=== PATIENT | male | born 1945 | race Caucasian/White ===

== ENCOUNTER 2016-05-17 16:58 | Observation (INO) | payer MEDICARE, OTHER ==
[~2016-05-17] VITALS: Ht 185.4 cm; Wt 148.7 kg
[~2016-05-17 16:58] MED LIST: ARIC5TAB PO; ASPI81 PO; ATOR10 PO; CLON.5 PO; COMMODE 3:1; COZA100T PO; DULO60 PO; GABA300 PO; IPRA0.02 NEB; LAMI25TA3 PO; LANTUS2P SC; NOVOLOGP2 SQ; OXYC1SOL5 PO; PERI8.6T PO; RANI150T PO; SPIRCAP INH; TAB-TAB PO; TUB TRANSFER BENCH; Z.0.OXYGEN INH; Z.0.WALKERBAR; Z.0.WHEELBAR
[2016-05-17 17:03] VITALS: BP 113/77; PULSE 82; TEMP 97.9
[2016-05-17 17:10] VITALS: BP 113/77; PULSE 79; O2SAT 95
[2016-05-17] MEDS ORDERED: SODIUM CHLORIDE 0.9% FLUSH 5 ML FLUSH IVF PRN (17:15)
[2016-05-17] MEDS ORDERED: SODIUM CHLOR 0.9% 1000 ML INJ 1,000 ML IV ONE ×2 (17:15→18:45)
[2016-05-17 17:18] VITALS: O2SAT 96
--- NOTE | 2016-05-17 17:45 | RADRPT ---
EXAM DATE/TIME: 05/17/2016 17:28 [facility] COMPARISON: CHEST SINGLE AP, December 29, 2015, 20:05. INDICATIONS : Chest pain and shortness of breath post fall. MEDICAL HISTORY : Chronic obstructive pulmonary disease. SURGICAL HISTORY : None. ENCOUNTER: Initial ACUITY: 1 day PAIN SCORE: 3/10 LOCATION: Bilateral chest FINDINGS: A single view of the chest demonstrates the lungs to be symmetrically aerated without evidence of mas s, infiltrate or effusion. The cardiomediastinal contours are stable. Osseous structures are intact and stable. CONCLUSION: No acute disease. No significant change has occurred. Rosendo Beckett MD on May 17, 2016 at 17:42 Board Certified Radiologist. This report was verified electronically.
[2016-05-17 17:57] LABS: AUTOMATED NEUTROPHIL # 11.6 TH/MM3 (1.8-7.7); BASOPHIL # 0.1 TH/MM3 (0-0.2); BASOPHIL % 0.6 % (0.0-2.0); EOSINOPHIL # 0.2 TH/MM3 (0-0.4); EOSINOPHIL % 1.5 % (0.0-4.0); HEMATOCRIT 39.1 % (39.0-51.0); HEMO FLAGS DIFF FINAL; LYMPH % 14.3 % (9.0-44.0); LYMPHOCYTE # 2.2 TH/MM3 (1.0-4.8); MEAN CORPUSCULAR HEMOGLOBIN 27.7 PG (27.0-34.0); MEAN CORPUSCULAR HGB CONC 31.5 % (32.0-36.0); MONO % 7.1 % (0.0-8.0); NEUT % 76.5 % (16.0-70.0); PLATELET COUNT 247 TH/MM3 (150-450); RED BLOOD COUNT 4.44 MIL/MM3 (4.50-5.90); RED CELL DISTRIBUTION WIDTH 16.5 % (11.6-17.2); WHITE BLOOD COUNT 15.2 TH/MM3 (4.0-11.0)
--- NOTE | 2016-05-17 18:09 | PD ---
HPI Chief Complaint: Fall Time Seen by Provider: 17:11 Travel History International Travel<30 days: No Contact w/Intl Traveler<30days: No Traveled to known affect area: No History of Present Illness HPI 70-year-old male senior living patient with multiple medical issues, nursing notes reviewed, recent admission for syncope with full workup, presents to the ER today because he states that he was trying to get out of the wheelchair because he had been sitting there for a while and did not have help from the staff, and felt weak, went down between the wheelchair in the bed, and is now having abdominal pain, back pain. He denies hitting his head or loss of consciousness. He denies any fevers, vomiting, or any other symptoms. Pain is currently a 6 out of 10 in the abdomen. He denies having had the pain before his fall. On initial evaluation by EMS, his blood pressure was 60 systolic. They gave him a bolus of fluids and is now 110 systolic. Modifying Factors: None Associated Signs & Symptoms: Fall from wheelchair, abdominal pain, back pain Risk Factors: Recent syncope PFSH Past Medical History Arthritis: Yes (severe arthritis) Asthma: No Autoimmune Disease: No Blood Disorders: No Bipolar Disorder: Yes Anxiety: Yes Depression: Yes Heart Rhythm Problems: No Cancer: No Cardiovascular Problems: Yes High Cholesterol: Yes Chemotherapy: No Chest Pain: No Congestive Heart Failure: Yes COPD: Yes Cerebrovascular Accident: Yes Dementia: Yes Diabetes: Yes Patient Takes Glucophage: Yes Diminished Hearing: No Endocrine: Yes Gastrointestinal Disorders: Yes (GERD) GERD: Yes Glaucoma: No Genitourinary: Yes Headaches: No Hiatal Hernia: No Heparin Induced Thrombocytopen: No Herniated Disk: Yes (SURGICAL REPAIR) Hypertension: Yes Immune Disorder: No Implanted Vascular Access Dvce: Yes Kidney Stones: No Musculoskeletal: Yes Neurologic: Yes (SPINAL CORD COMPRESSIONS, CARPAL TUNNEL SYNDROME; NEUROPATHY BLE & UE) Psychiatric: Yes Reproductive: No Respiratory: Yes Immunizations Current: Yes Migraines: No Myocardial Infarction: No Radiation Therapy: No Renal Failure: No Seizures: No Sickle Cell Disease: No Sleep Apnea: Yes (CPAP) Thyroid Disease: No Ulcer: No Tetanus Vaccination: < 5 Years Influenza Vaccination: Yes Past Surgical History Abdominal Surgery: No AICD: No Arteriovenous Shunt: No Body Medical Devices: METAL PLATE C4, TONY KNEE Cardiac Surgery: No Ear Surgery: No Endocrine Surgery: No Eye Surgery: Yes (BILATERAL CATARACT) Genitourinary Surgery: Yes (PROSTATE/TURP X2) Gynecologic Surgery: No Insulin Pump: No Joint Replacement: Yes (TONY KNEE) Neurologic Surgery: Yes (DISC, has a plate in his neck; Bilateral carpal tunnel release) Oral Surgery: Yes ( top teeth removed) Pacemaker: No Thoracic Surgery: No Tonsillectomy: Yes Other Surgery: Yes Social History Alcohol Use: No Tobacco Use: No Substance Use: No Allergies-Medications (Allergen,Severity, Reaction): Coded Allergies: Morphine (Verified Allergy, Severe, 05/17/16) Reported Meds & Prescriptions Reported Meds & Active Scripts Active Reported Melatonin (Melatonin (Bulk)) 1 Pow Pow 3 Mg PO HS Novolog Inj (Insulin Aspart) 1,000 Unit/10 Ml Vial 0 SQ DIRECTED Sliding Scale as directed. Novolog Inj (Insulin Aspart) 100 Unit/Ml Inj 5 SQ DAILY Lantus Inj (Insulin Glargine) 100 Unit/Ml Inj 45 SQ BID Percocet (Oxycodone-Acetaminophen) 5-325 mg Tab 1 Tab PO Q4H PRN Aricept (Donepezil) 10 Mg Tab 10 Mg PO HS Atorvastatin (Atorvastatin Calcium) 10 Mg Tab 10 Mg PO HS Naprosyn (Naproxen) 250 Mg Tab 250 Mg PO TID Gabapentin 600 Mg Tab 600 Mg PO TID Symbicort Inh (Budesonide/Formoterol Fumarate) 160-4.5 Mcg/Act Aero 2 Puff INH Q12HR Senexon (Sennosides) 8.6 Mg Tab 17 Mg PO BID Metformin (Metformin HCl) 500 Mg Tab 500 Mg PO BIDPC With meals Effexor (Venlafaxine HCl) 75 Mg Tab 225 Mg PO DAILY Spiriva Handihaler (Tiotropium Inh) 18 Mcg Cap 18 Mcg INH DAILY 1 capsule = 18 mcg Klonopin (Clonazepam) 1 Mg Tab 1 Mg PO BID Ranitidine (Ranitidine HCl) 150 Mg Tab 150 Mg PO DAILY Propranolol (Propranolol HCl) 10 Mg Tab 10 Mg PO DAILY Potassium Chloride ER (Potassium Chloride) 10 Meq Tab 10 Meq PO QOD Multivitamin Adults (Multiple Vitamins W/ Minerals) 1 Tab 1 Tab PO DAILY Losartan (Losartan Potassium) 100 Mg Tab 100 Mg PO DAILY Lasix (Furosemide) 20 Mg Tab 20 Mg PO DAILY Aspirin 81 Mg Tabdr 81 Mg PO DAILY Review of Systems Except as stated in HPI: all other systems reviewed are Neg Physical Exam Narrative GENERAL: Well-nourished, well-developed elderly white male patient in no acute distress. Awake and oriented 3. SKIN: Warm and dry. HEAD: Normocephalic. EYES: No scleral icterus. No injection or drainage. NECK: Supple, trachea midline. CARDIOVASCULAR: Regular rate and rhythm without murmurs, gallops, or rubs. RESPIRATORY: Breath sounds equal bilaterally. No accessory muscle use. GASTROINTESTINAL: Abdomen soft, periumbilical tenderness without guarding or rebound, nondistended. MUSCULOSKELETAL: No cyanosis, or edema. BACK: Nontender without obvious deformity. No CVA tenderness. Data Data Last Documented VS Vital Signs Date Time Temp Pulse Resp B/P Pulse Ox O2 Delivery O2 Flow Rate FiO2 05/17/16 17:18 96 4 05/17/16 17:10 79 113/77 Nasal Cannula 05/17/16 17:03 97.9 Orders Electrocardiogram (05/17/16 17:11) Complete Blood Count With Diff (05/17/16 17:11) Comprehensive Metabolic Panel (05/17/16 17:11) Magnesium (Mg) (05/17/16 17:11) Ckmb (Isoenzyme) Profile (05/17/16 17:11) Troponin I (05/17/16 17:11) Act Partial Throm Time (Ptt) (05/17/16 17:11) Prothrombin Time / Inr (Pt) (05/17/16 17:11) Urinalysis - C+S If Indicated (05/17/16 17:11) Chest, Single Ap (05/17/16 17:11) Ecg Monitoring (05/17/16 17:11) Iv Access Insert/Monitor (05/17/16 17:11) Oximetry (05/17/16 17:11) Sodium Chloride 0.9% Flush (Ns Flush) (05/17/16 17:15) Sodium Chlor 0.9% 1000 Ml Inj (Ns 1000 M (05/17/16 17:15) Lactic Acid Sepsis Protocol (05/17/16 18:09) Blood Culture (05/17/16 18:09) Piperacil-Tazo 4.5 Gm Premix (Zosyn 4.5 (05/17/16 18:22) Sodium Chlor 0.9% 1000 Ml Inj (Ns 1000 M (05/17/16 18:45) Ct Abd/Pel W/O Iv Contrast (05/17/16 17:11) Urine Culture (05/17/16 18:45) Admit Order (Ed Use Only) (05/17/16 19:23) Labs Laboratory Tests Test 05/17/16 05/17/16 05/17/16 17:42 18:35 18:45 White Blood Count 15.2 TH/MM3 Red Blood Count 4.44 MIL/MM3 Hemoglobin 12.3 GM/DL Hematocrit 39.1 % Mean Corpuscular Volume 88.0 FL Mean Corpuscular Hemoglobin 27.7 PG Mean Corpuscular Hemoglobin 31.5 % Concent Red Cell Distribution Width 16.5 % Platelet Count 247 TH/MM3 Mean Platelet Volume 8.5 FL Neutrophils (%) (Auto) 76.5 % Lymphocytes (%) (Auto) 14.3 % Monocytes (%) (Auto) 7.1 % Eosinophils (%) (Auto) 1.5 % Basophils (%) (Auto) 0.6 % Neutrophils # (Auto) 11.6 TH/MM3 Lymphocytes # (Auto) 2.2 TH/MM3 Monocytes # (Auto) 1.1 TH/MM3 Eosinophils # (Auto) 0.2 TH/MM3 Basophils # (Auto) 0.1 TH/MM3 CBC Comment DIFF FINAL Differential Comment Prothrombin Time 13.9 SEC Prothromb Time International 1.2 RATIO Ratio Activated Partial 26.6 SEC Thromboplast Time Sodium Level 139 MEQ/L Potassium Level 4.9 MEQ/L Chloride Level 101 MEQ/L Carbon Dioxide Level 26.8 MEQ/L Anion Gap 11 MEQ/L Blood Urea Nitrogen 28 MG/DL Creatinine 2.03 MG/DL Estimat Glomerular Filtration 33 ML/MIN Rate Random Glucose 173 MG/DL Calcium Level 8.8 MG/DL Magnesium Level 2.1 MG/DL Total Bilirubin 0.7 MG/DL Aspartate Amino Transf 25 U/L (AST/SGOT) Alanine Aminotransferase 35 U/L (ALT/SGPT) Alkaline Phosphatase 102 U/L Total Creatine Kinase 67 U/L Troponin I LESS THAN 0.02 NG/ML Total Protein 6.8 GM/DL Albumin 3.2 GM/DL Lactic Acid Level 2.4 mmol/L Urine Color YELLOW Urine Turbidity CLOUDY Urine pH 7.5 Urine Specific [place] 1.021 Urine Protein 100 mg/dL Urine Glucose (UA) NEG mg/dL Urine Ketones NEG mg/dL Urine Occult Blood MOD Urine Nitrite NEG Urine Bilirubin NEG Urine Urobilinogen LESS THAN 2.0 MG/DL Urine Leukocyte Esterase LARGE Urine RBC 96 /hpf Urine WBC /hpf Urine WBC Clumps MANY Urine Squamous Epithelial 1 /hpf Cells Urine Bacteria MOD /hpf Microscopic Urinalysis Comment CULTURE INDICATED MDM Medical Decision Making Medical Screen Exam Complete: Yes Emergency Medical Condition: Yes Medical Record Reviewed: Yes Interpretation(s) Laboratory Tests Test 05/17/16 05/17/16 05/17/16 17:42 18:35 18:45 White Blood Count 15.2 TH/MM3 (4.0-11.0) Red Blood Count 4.44 MIL/MM3 (4.50-5.90) Hemoglobin 12.3 GM/DL (13.0-17.0) Mean Corpuscular Hemoglobin 31.5 % Concent (32.0-36.0) Neutrophils (%) (Auto) 76.5 % (16.0-70.0) Neutrophils # (Auto) 11.6 TH/MM3 (1.8-7.7) Monocytes # (Auto) 1.1 TH/MM3 (0-0.9) Prothrombin Time 13.9 SEC (9.8-11.6) Blood Urea Nitrogen 28 MG/DL (7-18) Creatinine 2.03 MG/DL (0.60-1.30) Estimat Glomerular Filtration 33 ML/MIN (>89) Rate Random Glucose 173 MG/DL (74-106) Troponin I LESS THAN 0.02 NG/ML (0.02-0.05) Albumin 3.2 GM/DL (3.4-5.0) Lactic Acid Level 2.4 mmol/L (0.4-2.0) Urine Turbidity CLOUDY (CLEAR) Urine Protein 100 mg/dL (NEG-TRACE) Urine Occult Blood MOD (NEG) Urine Leukocyte Esterase LARGE (NEG) Urine RBC 96 /hpf (0-3) Urine WBC Clumps MANY (NONE) Urine Bacteria MOD /hpf (NONE) Last 24 hours Impressions Chest X-Ray 05/17/16 [id number] Signed Impressions: Service Date/Time: Tuesday, May 17, 2016 17:28 - CONCLUSION: No acute disease. No significant change has occurred. Rosendo Beckett MD Differential Diagnosis Fall from wheelchair, abdominal pain, hypotensionacute intra-abdominal injuries versus dehydration versus metabolic issues versus dysrhythmias versus sepsis Narrative Course Patient is fairly hypotensive initially and IV fluids were given in the ER. Lab work shows significant UTI with suspicion of sepsis and IV antibiotic's were initiated after cultures are drawn. Case is discussed with Dr. Trujillo for admission. Sepsis Criteria SIRS Criteria (2 or more): WBC > 68965, < 4000 or > 10% bands Sepsis Criteria (SIRS+source): Infect source susp/known Severe Sepsis (+one): Hypotension Septic Shock Criteria: Lactic acid >=4 Diagnosis Primary Impression: SEVERE SEPSIS WITHOUT SEPTIC SHOCK Additional Impression: UTI (urinary tract infection) Admitting Information Admitting Physician Requests: Admit Caren Villa MD May 17, 2016 18:09
[2016-05-17 18:18] LABS: APTT (PATIENT) 26.6 SEC (24.3-30.1); INTERNATIONAL NORMALIZED RATIO 1.2 RATIO; PROTHROMBIN TIME - PATIENT 13.9 SEC (9.8-11.6)
[2016-05-17] MEDS ORDERED: PIPERACIL-TAZO 4.5 GM PREMIX 100 ML IV STA (18:22)
[2016-05-17] MEDS ORDERED: PERC5TAB12 PO (18:27)
[2016-05-17] MEDS ORDERED: POTA10TA2 PO (18:27)
[2016-05-17] MEDS ORDERED: ASPI1TAB69 PO (18:27)
[2016-05-17] MEDS ORDERED: NOVOLOGSS SQ (18:27)
[2016-05-17] MEDS ORDERED: RANI150T PO (18:27)
[2016-05-17] MEDS ORDERED: PROP10TA6 PO (18:27)
[2016-05-17] MEDS ORDERED: GABA600T PO (18:27)
[2016-05-17] MEDS ORDERED: FURO1TAB62 PO (18:27)
[2016-05-17] MEDS ORDERED: SENE8.6T3 PO (18:27)
[2016-05-17] MEDS ORDERED: SPIRCAP INH (18:27)
[2016-05-17] MEDS ORDERED: ARIC10TA PO (18:27)
[2016-05-17] MEDS ORDERED: MULT1TAB84 PO (18:27)
[2016-05-17] MEDS ORDERED: VENL75TA PO (18:27)
[2016-05-17] MEDS ORDERED: NOVOLOGP2 SQ (18:27)
[2016-05-17] MEDS ORDERED: NAPR250T57 PO (18:27)
[2016-05-17] MEDS ORDERED: METF500T PO (18:27)
[2016-05-17] MEDS ORDERED: LANTUS2P SQ (18:27)
[2016-05-17] MEDS ORDERED: MELAPOW2 PO (18:27)
[2016-05-17] MEDS ORDERED: CLON1 PO (18:27)
[2016-05-17] MEDS ORDERED: SYMB160A INH (18:27)
[2016-05-17] MEDS ORDERED: LOSA100T PO (18:27)
[2016-05-17] MEDS ORDERED: ATOR10TA15 PO (18:27)
[2016-05-17 18:34] LABS: ALKALINE PHOSPHATASE 102 U/L (45-117); ALT (GPT) 35 U/L (12-78); ANION GAP 11 MEQ/L (5-15); AST (GOT) 25 U/L (15-37); BICARBONATE 26.8 MEQ/L (21.0-32.0); BLOOD UREA NITROGEN 28 MG/DL (7-18); CHLORIDE 101 MEQ/L (98-107); CREATINE KINASE 67 U/L (39-308); GLOMERULAR FILTRATION RATE 33 ML/MIN (>89); MAGNESIUM 2.1 MG/DL (1.5-2.5); POTASSIUM 4.9 MEQ/L (3.5-5.1); SODIUM (NA) 139 MEQ/L (136-145); TOTAL BILIRUBIN ADULT 0.7 MG/DL (0.2-1.0)
[2016-05-17 19:03] LABS: BACTERIA, URINE MOD /hpf; BLOOD, URINE MOD (NEG); COMMENT (UR) CULTURE INDICATED; CULTURE IF INDICATED CULTURE INDICATED; GLUCOSE,URINE NEG (NEG); KETONE, URINE NEG (NEG); NITRITE,URINE NEG (NEG); PH, URINE 7.5 (5.0-8.5); SQUAMOUS EPITHELIAL CELL URINE 1 /hpf (0-5); URINE COLOR YELLOW (YELLW/STRAW)
--- NOTE | 2016-05-17 19:36 | RADRPT ---
EXAM DATE/TIME: 05/17/2016 19:08 [facility] COMPARISON: CT ABDOMEN & PELVIS W/O CONTRAST, March 22, 2014, 21:53. INDICATIONS : Abdomen and back pain. ORAL CONTRAST: No oral contrast ingested. RADIATION DOSE: 29.75 CTDIvol (mGy) MEDICAL HISTORY : Cardiovascular disease. Hypertension. Chronic obstructive pulmonary disease.GERD Dementia CVA SURGICAL HISTORY : Tonsillectomy. Fusion, cervical.TURP ENCOUNTER: Initial ACUITY: 1 day PAIN SCALE: 10/10 LOCATION: Bilateral abdomen TECHNIQUE: Volumetric scanning of the abdomen and pelvis was performed. Using automated exposure control and ad justment of the mA and/or kV according to patient size, radiation dose was kept as low as reasonably achievable to obtain optimal diagnostic quality images. FINDINGS: There are 5 mm right mid zone and lower pole and 3 mm right lower pole stones, but is nonobstructing. No ureteral calculus or hydronephrosis/hydroureter seen on either side. There are unchanged cysts of both kidneys measuring up to 2.5 cm on the right and up to 4.3 cm on the left. Noncontrast appearance of the liver, spleen, pancreas and retroperitoneum within normal limits. Mild, unchanged nodularity again noted of both adrenal glands. No obstruction or acute inflammatory changes are seen in the gastrointestinal tract. The appendix is well-visualized and normal. No free fluid or free air. No lymphadenopathy. Trace atelectasis seen in the bases. No acute bony abnormality demonstrated. CONCLUSION: 1. Nonobstructing stones of the right kidney. No evidence of obstructive uropathy or other acute abno rmality on either side. 2. Stable bilateral renal cysts. 3. Trace bibasilar atelectasis. Maxx Swain MD on May 17, 2016 at 19:30 Board Certified Radiologist. This report was verified electronically.
[2016-05-17 20:44] LABS: LACTIC ACID GHOST NOT REPORTABLE
[2016-05-17] MEDS ORDERED: ONDANSETRON HCL 4 MG/2 ML VIAL IVP PRN (20:45)
[2016-05-17] MEDS ORDERED: ACETAMINOPHEN 325 MG TAB PO PRN (20:45)
[2016-05-17] MEDS ORDERED: SODIUM CHLORIDE 0.9% FLUSH 5 ML FLUSH FLUSH PRN (20:45)
--- NOTE | 2016-05-17 20:47 | PD ---
Physical Exam Date Seen by Provider: May 17, 2016 Time Seen by Provider: 20:00 Narrative accepted in transfer of care from Dr Villa Data Data Last Documented VS Vital Signs Date Time Temp Pulse Resp B/P Pulse Ox O2 Delivery O2 Flow Rate FiO2 05/17/16 17:18 96 4 05/17/16 17:10 79 113/77 Nasal Cannula 05/17/16 17:03 97.9 Orders Electrocardiogram (05/17/16 17:11) Complete Blood Count With Diff (05/17/16 17:11) Comprehensive Metabolic Panel (05/17/16 17:11) Magnesium (Mg) (05/17/16 17:11) Ckmb (Isoenzyme) Profile (05/17/16 17:11) Troponin I (05/17/16 17:11) Act Partial Throm Time (Ptt) (05/17/16 17:11) Prothrombin Time / Inr (Pt) (05/17/16 17:11) Urinalysis - C+S If Indicated (05/17/16 17:11) Chest, Single Ap (05/17/16 17:11) Ecg Monitoring (05/17/16 17:11) Iv Access Insert/Monitor (05/17/16 17:11) Oximetry (05/17/16 17:11) Sodium Chloride 0.9% Flush (Ns Flush) (05/17/16 17:15) Sodium Chlor 0.9% 1000 Ml Inj (Ns 1000 M (05/17/16 17:15) Lactic Acid Sepsis Protocol (05/17/16 18:09) Blood Culture (05/17/16 18:09) Piperacil-Tazo 4.5 Gm Premix (Zosyn 4.5 (05/17/16 18:22) Sodium Chlor 0.9% 1000 Ml Inj (Ns 1000 M (05/17/16 18:45) Ct Abd/Pel W/O Iv Contrast (05/17/16 17:11) Urine Culture (05/17/16 18:45) Admit Order (Ed Use Only) (05/17/16 19:23) Labs Laboratory Tests Test 05/17/16 05/17/16 05/17/16 17:42 18:35 18:45 Prothrombin Time 13.9 SEC Prothromb Time International 1.2 RATIO Ratio Activated Partial 26.6 SEC Thromboplast Time Sodium Level 139 MEQ/L Potassium Level 4.9 MEQ/L Chloride Level 101 MEQ/L Carbon Dioxide Level 26.8 MEQ/L Anion Gap 11 MEQ/L Blood Urea Nitrogen 28 MG/DL Creatinine 2.03 MG/DL Estimat Glomerular Filtration 33 ML/MIN Rate Random Glucose 173 MG/DL Calcium Level 8.8 MG/DL Magnesium Level 2.1 MG/DL Total Bilirubin 0.7 MG/DL Aspartate Amino Transf 25 U/L (AST/SGOT) Alanine Aminotransferase 35 U/L (ALT/SGPT) Alkaline Phosphatase 102 U/L Total Creatine Kinase 67 U/L Troponin I LESS THAN 0.02 NG/ML Total Protein 6.8 GM/DL Albumin 3.2 GM/DL White Blood Count 15.2 TH/MM3 Red Blood Count 4.44 MIL/MM3 Hemoglobin 12.3 GM/DL Hematocrit 39.1 % Mean Corpuscular Volume 88.0 FL Mean Corpuscular Hemoglobin 27.7 PG Mean Corpuscular Hemoglobin 31.5 % Concent Red Cell Distribution Width 16.5 % Platelet Count 247 TH/MM3 Mean Platelet Volume 8.5 FL Neutrophils (%) (Auto) 76.5 % Lymphocytes (%) (Auto) 14.3 % Monocytes (%) (Auto) 7.1 % Eosinophils (%) (Auto) 1.5 % Basophils (%) (Auto) 0.6 % Neutrophils # (Auto) 11.6 TH/MM3 Lymphocytes # (Auto) 2.2 TH/MM3 Monocytes # (Auto) 1.1 TH/MM3 Eosinophils # (Auto) 0.2 TH/MM3 Basophils # (Auto) 0.1 TH/MM3 CBC Comment DIFF FINAL Differential Comment Lactic Acid Level 2.4 mmol/L Urine Color YELLOW Urine Turbidity CLOUDY Urine pH 7.5 Urine Specific [place] 1.021 Urine Protein 100 mg/dL Urine Glucose (UA) NEG mg/dL Urine Ketones NEG mg/dL Urine Occult Blood MOD Urine Nitrite NEG Urine Bilirubin NEG Urine Urobilinogen LESS THAN 2.0 MG/DL Urine Leukocyte Esterase LARGE Urine RBC 96 /hpf Urine WBC /hpf Urine WBC Clumps MANY Urine Squamous Epithelial 1 /hpf Cells Urine Bacteria MOD /hpf Microscopic Urinalysis Comment CULTURE INDICATED MDM Medical Record Reviewed: Yes Supervised Visit with ASHLYN: No Interpretation(s) Last Impressions Chest X-Ray 05/17/16 [id number] Signed Impressions: Service Date/Time: Tuesday, May 17, 2016 17:28 - CONCLUSION: No acute disease. No significant change has occurred. Rosendo Beckett MD Abdomen/Pelvis CT 05/17/16 1711 Signed Impressions: Service Date/Time: Tuesday, May 17, 2016 19:08 - CONCLUSION: 1. Nonobstructing stones of the right kidney. No evidence of obstructive uropathy or other acute abnormality on either side. 2. Stable bilateral renal cysts. 3. Trace bibasilar atelectasis. Maxx Swain MD Differential Diagnosis accepted in transfer of care from Dr Villa please refer to her dictation Narrative Course accepted in transfer of care from Dr Villa for follow-up of pending CT results and patient admission; per Dr. Hunter patient's case has been discussed in detail with admitting doctor Dr. Trujillo but he wanted to know the results of the CT before actually admitting the patient CT abdomen and pelvis identified patient to have right-sided kidney stones without evidence bilaterally of obstructive uropathy; stable renal cysts; and mild bibasilar atelectasis otherwise no acute process. Patient's case discussed in detail with Zhane health safety and environment manager for [facility] aware of white count of 15,000, renal insufficiency, normal range cardiac enzymes, markedly abnormal urinalysis with moderate bacteria many clumped white blood cells too numerous to count white blood cells positive leukocyte esterase and occult blood with 96 RBCs culture is indicated. Aware the patient is a 30 receive Zosyn. Patient has received IV fluid boluses in the emergency department. Patient's case will be accepted to the [facility] with patient to be admitted to Dr. Bill's service. Physician Communication Physician Communication discussed with Zhane --admit to Dr Bill'david service Diagnosis Primary Impression: SEVERE SEPSIS WITHOUT SEPTIC SHOCK Additional Impressions: UTI (urinary tract infection) History of COPD H/O CHF Admitting Information Admitting Physician Requests: Admit Elissa Minor MD May 17, 2016 20:47
--- NOTE | 2016-05-17 20:59 | EKG ---
Date Performed: 05/17/2016 Time Performed: 18:53:30 PTAGE: 70 years EKG: Sinus rhythm LOW QRS VOLTAGE IN PRECORDIAL LEADS INFERIOR ST ABNORMALITY, CONSIDER EARLY REPOLARIZATION BORDERLIN E ECG PREVIOUS TRACING : 12/29/2015 20.32 No significant change from previous tracing noted. DOCTOR: Wander Rodriguez Interpretating Date/Time 05/17/2016 20:58:40
[2016-05-17 21:00] VITALS: BP 102/43; PULSE 79; RESP 18; O2SAT 96
[2016-05-17] MEDS ORDERED: GLUCAGON 1 MG/ML VIAL OTHER PRN (21:00)
[2016-05-17] MEDS ORDERED: DEXTROSE 50% IN WATER 50 ML VIAL(D50) IV PUSH PRN (21:00)
[2016-05-17] MEDS: SODIUM CHLORIDE 0.9% FLUSH 5 ML FLUSH FLUSH SCH (21:00)
[2016-05-17] MEDS: INSULIN ASPART SUPPLEMENTAL SCALE SQ SCH (21:46)
[2016-05-17] MEDS: SODIUM CHLOR 0.9% 1000 ML INJ 1,000 ML IV SCH (22:49)
[2016-05-17 22:57] VITALS: BP 110/51; PULSE 77; RESP 18; O2SAT 96
[2016-05-18 04:00] VITALS: BP 156/75; PULSE 75; RESP 20; TEMP 97.7; O2SAT 96
[2016-05-18] MEDS: PIPERACIL-TAZO 2.25 GM PREMIX 50 ML IV SCH ×3 (05:28→21:04)
[2016-05-18] MEDS: SODIUM CHLOR 0.9% 1000 ML INJ 1,000 ML IV SCH ×2 (05:30→09:09)
[2016-05-18] MEDS: INSULIN ASPART SUPPLEMENTAL SCALE SQ SCH ×4 (06:09→20:55)
[2016-05-18] MEDS: SENNOSIDES 8.6 MG TAB PO SCH ×2 (08:44→21:03)
[2016-05-18] MEDS: FAMOTIDINE 20 MG TAB PO SCH ×2 (08:44→21:04)
[2016-05-18] MEDS: GABAPENTIN 300 MG CAP PO SCH ×2 (08:44→21:04)
[2016-05-18] MEDS: LOSARTAN 50 MG TAB PO SCH (08:44)
[2016-05-18] MEDS: metFORMIN HCL 500 MG TAB PO SCH (08:44)
[2016-05-18] MEDS: PROPRANOLOL HCL 10 MG TAB PO SCH (08:44)
[2016-05-18] MEDS: BUDESONIDE-FORMOTEROL 160/4.5 MCG INHALER INH SCH ×2 (09:00→21:00)
[2016-05-18] MEDS: SODIUM CHLORIDE 0.9% FLUSH 5 ML FLUSH FLUSH SCH ×2 (09:00→20:55)
--- NOTE | 2016-05-18 09:37 | MH ---
cc: LEXI FAUSTIN MD DATE OF ADMISSION: 05/17/2016 DATE OF : 1945 REASON FOR ADMISSION: Abdominal pain. TRAVEL: Any travel in the last 30 days, none. HISTORY OF PRESENT ILLNESS: This is a 70 year old white male who has multiple comorbidities and currently is in a long term setting according to the notes he was admitted recently with a syncopal episode and had a full work up, yesterday the patient was in a wheelchair and was needing assistance to go back to bed, he attempted to move on his own and slide down between the wheelchair and the bed. According to the records, he started complaining of some abdominal pain and back pain and was brought in for evaluation. Currently the patient states abdominal pain has subsided. He does have mild agitation and pleasant confusion but does respond to verbal stimuli. The patient does complain of shortness of breath at times but currently he is dyspneic at rest. In the emergency room and on initial evaluation, the patient received a fluid bolus, blood pressure initially was 102/43 but it is now at the last check is now 156/75. The patient is resting in the bed, no facial grimace but is unaware of where he is in his current situation. PAST MEDICAL HISTORY: 1. Includes; Severe arthritis. 2. Chronic obstructive pulmonary disease. 3. Congestive heart failure. 4. Anxiety disorder. 5. Bipolar disorder. 6. Cardiovascular disease. 7. Hyperlipidemia. 8. Stroke. 9. Dementia. 10. Diabetes mellitus type 2 on oral hypoglycemics and insulin. 11. Gastroesophageal reflux disease. 12. History of urinary problems. 13. Degenerative disc disease. 14. Hypertension. 15. Carpal tunnel syndrome. 16. Neuropathy. 17. Obstructive sleep apnea. Please note that the patient does use a CPAP as needed. 18. Prostate disease. PAST SURGICAL HISTORY: 1. Knee surgery, bilateral. 2. Metal plate C4 surgery. 3. Cataract surgery. 4. Transurethral resection of the prostate times two. 5. Bilateral carpal tunnel release. 6. Oral surgery with top teeth removed. 7. Tonsillectomy. 8. Please note most of this information is being gathered from the record, due to the patients altered mental status. ALLERGIES MORPHINE REPORTED MEDICATIONS: 1. Melatonin. 2. NovoLog for sliding scale. 3. 5 units subcutaneously daily. 4. Lantus insulin. 5. Aricept 6. Percocet 7. Atorvastatin 8. Naprosyn 9. Gabapentin 10. Symbicort 11. Senexon 12. Metformin 13. Effexor 14. Inhalers. 15. Klonopin 16. Zantac 17. Propranolol 18. Potassium 19. Vitamins 20. Losartan 21. Lasix 22. Aspirin. SOCIAL HISTORY: To my knowledge, no current alcohol, tobacco or illicit drug use. FAMILY HISTORY: Not applicable. REVIEW OF SYSTEMS: Currently denies any abdominal pain, does complain of some shortness of breath with exertion due to limited data from the patient. The complete review of systems is limited. PHYSICAL EXAMINATION: VITAL SIGNS: Temperature 97.7, pulse 75, respirations 20, blood pressure initially 102/43, now 156/75. O2 saturation 96, nasal cannula 3 liters of o2. IN GENERAL: Obese, white male, looks to be his stated age. Resting in the bed on his back. Well developed. He awakens to verbal stimuli with mild agitation. SKIN: The skin is pink, warm and dry. HEAD, EYES, EARS, NOSE, AND THROAT: Atraumatic, normocephalic, Pupils equal, round, reactive to light and accommodation three. No scleral icterus, no drainage. Oral cavity is pink and moist. NECK: The neck is thick, supple, trachea is midline. CARDIOVASCULAR SYSTEM: S1, S2. Regular rate and rhythm. Soft systolic murmur, grade 2/6 heard at the left sternal border, no gallops, no rubs. RESPIRATORY: Essentially clear and equal anteriorly and posteriorly, in the upper mid eid, decreased breath sounds bilateral in his lower lobes. ABDOMEN: The abdomen is obese, round, soft, nondistended, nontender to light palpitation. MUSCULOSKELETAL: He can move his extremities with purpose, minimal trace edema bilateral. NEUROLOGICALLY: He is alert, pleasant, confusion to place, situation and time. PSYCHIATRIC: Mood initially with slight agitation but after waking up began to respond more responsively. DIAGNOSTIC DATA: White blood cell count 15.2, Red blood cell 4.44, hemoglobin 12.3, hematocrit 39.1. Platelet count 247, neutrophil percentage 76.5. Coag; PT/INR 1.2. Chemistries; sodium 139, potassium 4.9, chloride 101, carbon dioxide 26.8, blood urea nitrogen 28, creatinine 2.03. Glomerular filtration rate 33, random glucose 173, lactic acid 2.4 initially in the emergency room and now 1.3 at 05/18/2016 at 12:30. Calcium 8.8. Magnesium 2.1, total bilirubin 0.7, Aspartate aminotransferase 25, alt 35, alkaline phosphatase 102. Troponins less than 0.02. Total protein 6.8, albumin 3.2. Urine is yellow, cloudy, pH 7.5, specific gravity 1.021, positive for protein, negative for glucose and ketones. Moderate amount of acute blood. Nitrates negative, bilirubin negative. Urine esterase large amount, red blood cells counts 96, many white blood count, moderate amount of bacteria. Culture is pending. ASSESSMENT AND PLAN: 1. Urinary tract infection with urosepsis, nonobstructing right kidney lithiasis. 2. Lactic acid urosepsis. 3. Hypertension without septic shock. 4. Acute kidney injury. 5. Hypertension. 6. Diabetes. 7. Morbid obesity. 8. Chronic obstructive pulmonary disease. 9. Congestive heart failure. PLAN: 1. Our plan was to admit initially for observation. The patients vital signs will be q four. He will receive cardiac monitoring, a 1800 calorie ada diet. Gentle hydration with IV fluids. Reconcile his medications. In the emergency room the patient received a CT of the abdomen and pelvis and a chest x-ray. The chest x-ray shows no acute disease. CT of the abdomen and pelvis showed nonobstructing stones of the right kidney, stable bilateral renal cyst, trace of bibasilar atelectasis. 2. IV Antibiotics include; Piperacillin/Tazobactam sodium q eight. 3. Sequential compression devices. 4. Pepcid for peptic ulcer disease prophylaxis. 5. Sequential compression devices for deep venous thrombosis prophylaxis. 6. Peptic ulcer disease prophylaxis with Pepcid. 7. Reconcile and monitor the patients medication, accuchecks with sliding scale insulin. We will reevaluate his need for his chcf insulin. 8. Patients code status to my knowledge is full code, full aggressive care. 9. We will monitor his vital signs which will include any fever, dysrhythmias, respirations and blood pressure. The patient will be monitored also with labs which will include his white blood counts and response to medications. I.e. leukocytosis. Dictated by GLADYS Rodriguez MD Gucci Cooper /7:49 AM /8:18 AM
[2016-05-18] MEDS: TIOTROPIUM BROMIDE 18 MCG INH INH SCH (10:59)
[2016-05-18] MEDS: VENLAFAXINE HCL XR 75 MG CAP PO SCH (10:59)
--- NOTE | 2016-05-18 11:07 | HHI.PR ---
Objective Objective Results - Vital Signs Date Time Temp Pulse Resp B/P Pulse Ox O2 Delivery O2 Flow Rate FiO2 05/18/16 04:00 97.7 75 20 156/75 96 05/18/16 01:18 18 05/17/16 22:57 77 18 110/51 96 Nasal Cannula 3 05/17/16 22:48 96 Room Air 05/17/16 21:00 79 18 102/43 96 Nasal Cannula 3 05/17/16 17:18 96 4 05/17/16 17:10 79 113/77 95 Nasal Cannula 4 05/17/16 17:03 97.9 82 113/77 I/O 05/17/16 05/17/16 05/17/16 05/18/16 05/18/16 05/18/16 07:00 15:00 23:00 07:00 15:00 23:00 Intake Total 500 ml Balance 500 ml IV Total 500 ml Result Diagram: 05/17/16 1742 05/17/16 174 Physical Exam Physical Exam PHYSICAL EXAMINATION GENERAL: This is a well-developed, well-nourished male who appears to be in no acute distress. He is alert and awake, []. HEAD: Normocephalic without any lesion or mass noted. Facial features appear symmetric. OROPHARYNGEAL: Oropharynx without erythema or edema. NECK: Supple. No nuchal rigidity or lymphadenopathy. Trachea midline without deviation. CARDIAC: Regular rhythm, regular rate, S1 and S2 are heard. Murmur []; no gallops or rubs. LUNGS: Clear to auscultation bilaterally. [] wheeze, [] rhonchi or [] rale. No use of accessory muscles on inspiration or expiration. ABDOMEN: Soft, nontender, no organomegaly or masses. Bowel sounds are heard in all four quadrants. No rebound. No guarding. EXTREMITIES: [] edema. Pulses equal bilateral. [] cyanosis. NEUROLOGICAL: Patient mood and affect appropriate. No focal deficit SKIN:Warm and moist A/P Assessment and Plan Patient followed per Dr. Bill, patient seen on her behalf. Case discussed for plan. Emilia Henley May 18, 2016 11:07
[2016-05-18 12:15] VITALS: BP 116/58; PULSE 65; RESP 20; TEMP 95.4; O2SAT 98
--- NOTE | 2016-05-18 15:00 | HHI.HP ---
[facility] Service [place] [facility] Primary Care Physician Unknown Admission Diagnosis fall/sepsis/UTI Diagnoses: Travel History International Travel<30 Days: No Contact w/Intl Traveler <30 Da: No Traveled to Known Affected Are: No Past Family Social History Allergies: Coded Allergies: Morphine (Verified Allergy, Severe, 05/17/16) Physical Exam Vital Signs Vital Signs Date Time Temp Pulse Resp B/P Pulse Ox O2 Delivery O2 Flow Rate FiO2 05/18/16 12:15 95.4 65 20 116/58 98 05/18/16 04:00 97.7 75 20 156/75 96 05/18/16 01:18 18 05/17/16 22:57 77 18 110/51 96 Nasal Cannula 3 05/17/16 22:48 96 Room Air 05/17/16 21:00 79 18 102/43 96 Nasal Cannula 3 05/17/16 17:18 96 4 05/17/16 17:10 79 113/77 95 Nasal Cannula 4 05/17/16 17:03 97.9 82 113/77 Physical Exam GENERAL: This is a well-nourished, well-developed patient, in no apparent distress. SKIN: No rashes, ecchymoses or lesions. Cool and dry. HEAD: Atraumatic. Normocephalic. No temporal or scalp tenderness. EYES: Pupils equal round and reactive. Extraocular motions intact. No scleral icterus. No injection or drainage. ENT: Nose without bleeding, purulent drainage or septal hematoma. Throat without erythema, tonsillar hypertrophy or exudate. Uvula midline. Airway patent. NECK: Trachea midline. No JVD or lymphadenopathy. Supple, nontender, no meningeal signs. CARDIOVASCULAR: Regular rate and rhythm without murmurs, gallops, or rubs. RESPIRATORY: Clear to auscultation. Breath sounds equal bilaterally. No wheezes , rales, or rhonchi. GASTROINTESTINAL: Abdomen soft, non-tender, nondistended. No hepato-splenomegaly , or palpable masses. No guarding. MUSCULOSKELETAL: Extremities without clubbing, cyanosis, or edema. No joint tenderness, effusion, or edema noted. No calf tenderness. Negative Homans sign bilaterally. NEUROLOGICAL: Awake and alert. Cranial nerves II through XII intact. Motor and sensory grossly within normal limits. Five out of 5 muscle strength in all muscle groups. Normal speech. Laboratory Laboratory Tests Test 05/17/16 05/17/16 05/17/16 05/18/16 17:42 18:35 18:45 00:30 Prothrombin Time 13.9 Prothromb Time International 1.2 Ratio Activated Partial 26.6 Thromboplast Time Sodium Level 139 Potassium Level 4.9 Chloride Level 101 Carbon Dioxide Level 26.8 Anion Gap 11 Blood Urea Nitrogen 28 Creatinine 2.03 Estimat Glomerular Filtration 33 Rate Random Glucose 173 Calcium Level 8.8 Magnesium Level 2.1 Total Bilirubin 0.7 Aspartate Amino Transf 25 (AST/SGOT) Alanine Aminotransferase 35 (ALT/SGPT) Alkaline Phosphatase 102 Total Creatine Kinase 67 Troponin I LESS THAN 0.02 Total Protein 6.8 Albumin 3.2 White Blood Count 15.2 Red Blood Count 4.44 Hemoglobin 12.3 Hematocrit 39.1 Mean Corpuscular Volume 88.0 Mean Corpuscular Hemoglobin 27.7 Mean Corpuscular Hemoglobin 31.5 Concent Red Cell Distribution Width 16.5 Platelet Count 247 Mean Platelet Volume 8.5 Neutrophils (%) (Auto) 76.5 Lymphocytes (%) (Auto) 14.3 Monocytes (%) (Auto) 7.1 Eosinophils (%) (Auto) 1.5 Basophils (%) (Auto) 0.6 Neutrophils # (Auto) 11.6 Lymphocytes # (Auto) 2.2 Monocytes # (Auto) 1.1 Eosinophils # (Auto) 0.2 Basophils # (Auto) 0.1 CBC Comment DIFF FINAL Differential Comment Lactic Acid Level 2.4 1.3 Urine Color YELLOW Urine Turbidity CLOUDY Urine pH 7.5 Urine Specific [place] 1.021 Urine Protein 100 Urine Glucose (UA) NEG Urine Ketones NEG Urine Occult Blood MOD Urine Nitrite NEG Urine Bilirubin NEG Urine Urobilinogen LESS THAN 2.0 Urine Leukocyte Esterase LARGE Urine RBC 96 Urine WBC Urine WBC Clumps MANY Urine Squamous Epithelial 1 Cells Urine Bacteria MOD Microscopic Urinalysis Comment CULTURE INDICATED Date/Time Procedure Status Source Growth 05/17/16 18:45 Urine Culture - Preliminary Resulted Urine Clean Catch Gram Negative Guillermo 05/17/16 18:35 Aerobic Blood Culture - Preliminary Resulted Blood Peripheral NO GROWTH IN 1 DAY 05/17/16 18:35 Anaerobic Blood Culture - Preliminary Resulted Blood Peripheral NO GROWTH IN 1 DAY Result Diagram: 05/17/16 1742 05/17/16 1742 Assessment and Plan Assessment and Plan Patient seen and examined Please refer to admission H & P for dEtails continue zosyn follow urine cultures: prelim GNR BP improved decrease i/v fluids to 50cc /hr if po intake good, will d/c i/v fluids. has h/o CHF complaining of severe pelvic and left leg pain will get Xrays PT eval pain control discussed with patient discussed with nursing staff discussed with Emilia GRAHAM Physician Certification 2 Midnight Certification Type: Admission for Inpatient Services Order for Inpatient Services The services are ordered in accordance with Medicare regulations or non- Medicare payer requirements, as applicable. In the case of services not specified as inpatient-only, they are appropriately provided as inpatient services in accordance with the 2-midnight benchmark. Estimated LOS (days): 3 days is the estimated time the patient will need to remain in the hospital, assuming treatment plan goals are met and no additional complications. Post-Hospital Plan: [facility] Stacy Bill MD May 18, 2016 15:00
[2016-05-18 16:00] VITALS: BP 103/54; PULSE 67; RESP 20; TEMP 95.4; O2SAT 99
[2016-05-18] MEDS: oxyCODONE/ACETAMINOPHEN 5 MG/325 MG TAB PO PRN ×2 (17:55→23:29)
--- NOTE | 2016-05-18 20:30 | RADRPT ---
EXAM DATE/TIME: 05/18/2016 20:13 [facility] COMPARISON: No previous studies available for comparison. INDICATIONS : Patient fell out of wheelchair 2 days ago. Complains of posterior pelvis pain. MEDICAL HISTORY : None. SURGICAL HISTORY : None. ENCOUNTER: Initial ACUITY: 1 day PAIN SCORE: 8/10 LOCATION: Pelvis FINDINGS: A single frontal view of the pelvis demonstrates no evidence of fracture. Degenerative changes of bot h hips. The bony pelvic ring is intact. Bony mineralization is normal. The soft tissues are intact . CONCLUSION: 1. No acute fracture. 2. Degenerative changes of both hips. Raffi Lebron MD on May 18, 2016 at 20:27 Board Certified Radiologist. This report was verified electronically.
--- NOTE | 2016-05-18 20:31 | RADRPT ---
EXAM DATE/TIME: 05/18/2016 20:17 [facility] COMPARISON: No previous studies available for comparison. INDICATIONS : Patient fell out of wheelchair 2 days ago. Complains of left foot pain. MEDICAL HISTORY : None. SURGICAL HISTORY : None. ENCOUNTER: Initial ACUITY: 2 days PAIN SCORE: 8/10 LOCATION: Left Foot FINDINGS: Two view examination of the left foot demonstrates no dislocation or fracture. Soft tissue swelling . The calcaneus is intact. Bony mineralization is normal. No calcaneal spur. Hammertoes. CONCLUSION: 1. No acute fracture. 2. Calcaneal spur. Raffi Lebron MD on May 18, 2016 at 20:28 Board Certified Radiologist. This report was verified electronically.
[2016-05-18 21:00] VITALS: PULSE 69
[2016-05-18] MEDS: ATORVASTATIN 10 MG TAB PO SCH (21:03)
[2016-05-18 22:15] VITALS: BP 113/59; PULSE 115; RESP 20; TEMP 97.1; O2SAT 95
[2016-05-19] VITALS (10 sets, daily range): BP systolic 115–133; BP diastolic 60–87; PULSE 66–112; RESP 16–22; TEMP 96.1–98; O2SAT 94–96
[2016-05-19] MEDS: PIPERACIL-TAZO 2.25 GM PREMIX 50 ML IV SCH (04:37)
[2016-05-19] MEDS: INSULIN ASPART SUPPLEMENTAL SCALE SQ SCH ×4 (06:24→21:00)
[2016-05-19 08:38] LABS: AUTOMATED NEUTROPHIL # 3.9 TH/MM3 (1.8-7.7); BASOPHIL % 0.3 % (0.0-2.0); EOSINOPHIL # 0.3 TH/MM3 (0-0.4); EOSINOPHIL % 4.8 % (0.0-4.0); HEMATOCRIT 35.2 % (39.0-51.0); HEMO FLAGS DIFF FINAL; LYMPH % 32.8 % (9.0-44.0); LYMPHOCYTE # 2.3 TH/MM3 (1.0-4.8); MEAN CELL VOLUME 87.4 FL (80.0-100.0); MEAN CORPUSCULAR HEMOGLOBIN 28.6 PG (27.0-34.0); MEAN CORPUSCULAR HGB CONC 32.7 % (32.0-36.0); MONO % 7.2 % (0.0-8.0); NEUT % 54.9 % (16.0-70.0); PLATELET COUNT 209 TH/MM3 (150-450); RED BLOOD COUNT 4.03 MIL/MM3 (4.50-5.90); RED CELL DISTRIBUTION WIDTH 16.7 % (11.6-17.2); WHITE BLOOD COUNT 7.1 TH/MM3 (4.0-11.0)
[2016-05-19] MEDS: SODIUM CHLORIDE 0.9% FLUSH 5 ML FLUSH FLUSH SCH ×2 (09:00→21:23)
[2016-05-19] MEDS: VENLAFAXINE HCL XR 75 MG CAP PO SCH (09:01)
[2016-05-19] MEDS: GABAPENTIN 300 MG CAP PO SCH ×3 (09:01→17:30)
[2016-05-19] MEDS: PROPRANOLOL HCL 10 MG TAB PO SCH (09:01)
[2016-05-19] MEDS: SENNOSIDES 8.6 MG TAB PO SCH ×2 (09:01→21:24)
[2016-05-19] MEDS: FAMOTIDINE 20 MG TAB PO SCH ×2 (09:02→21:24)
[2016-05-19] MEDS: TIOTROPIUM BROMIDE 18 MCG INH INH SCH (09:02)
[2016-05-19] MEDS: BUDESONIDE-FORMOTEROL 160/4.5 MCG INHALER INH SCH ×2 (09:02→21:23)
[2016-05-19 09:07] LABS: BICARBONATE 32.8 MEQ/L (21.0-32.0); POTASSIUM 4.1 MEQ/L (3.5-5.1)
--- NOTE | 2016-05-19 10:49 | HHI.PR ---
Subjective Subjective Remarks c/o back pain, leg/knee pain awake, oriented x 3 no cp no sob no fever inc. of urine at times Review of Systems Constitutional Constitutional Remarks 12 point ROS completed, unreliable Vitals/Results Intake & Output 05/18/16 05/18/16 05/19/16 15:00 23:00 07:00 Intake Total 1911 ml 900 ml 650 ml Output Total 1650 ml 300 ml 550 ml Balance 261 ml 600 ml 100 ml Intake Oral 960 ml 900 ml 450 ml IV Total 951 ml 200 ml Output Urine Total 1650 ml 300 ml 550 ml # Voids 5 1 3 # Bowel Movements 0 0 0 Vital Signs Vital Signs Date Time Temp Pulse Resp B/P Pulse Ox O2 Delivery O2 Flow Rate FiO2 05/19/16 08:00 96.7 80 20 130/60 95 05/19/16 07:26 80 05/19/16 06:15 98.0 112 22 120/60 95 05/19/16 00:29 20 05/19/16 00:00 98.0 110 22 115/64 96 05/18/16 22:15 97.1 115 20 113/59 95 05/18/16 21:00 69 05/18/16 16:00 95.4 67 20 103/54 99 05/18/16 12:15 95.4 65 20 116/58 98 CBC/BMP: 05/19/16 0739 05/19/16 0739 Lab Results Laboratory Tests Test 05/19/16 07:39 White Blood Count 7.1 TH/MM3 Red Blood Count 4.03 MIL/MM3 Hemoglobin 11.5 GM/DL Hematocrit 35.2 % Mean Corpuscular Volume 87.4 FL Mean Corpuscular Hemoglobin 28.6 PG Mean Corpuscular Hemoglobin 32.7 % Concent Red Cell Distribution Width 16.7 % Platelet Count 209 TH/MM3 Mean Platelet Volume 8.6 FL Neutrophils (%) (Auto) 54.9 % Lymphocytes (%) (Auto) 32.8 % Monocytes (%) (Auto) 7.2 % Eosinophils (%) (Auto) 4.8 % Basophils (%) (Auto) 0.3 % Neutrophils # (Auto) 3.9 TH/MM3 Lymphocytes # (Auto) 2.3 TH/MM3 Monocytes # (Auto) 0.5 TH/MM3 Eosinophils # (Auto) 0.3 TH/MM3 Basophils # (Auto) 0.0 TH/MM3 CBC Comment DIFF FINAL Differential Comment Sodium Level 143 MEQ/L Potassium Level 4.1 MEQ/L Chloride Level 105 MEQ/L Carbon Dioxide Level 32.8 MEQ/L Anion Gap 5 MEQ/L Blood Urea Nitrogen 18 MG/DL Creatinine 1.14 MG/DL Estimat Glomerular Filtration 64 ML/MIN Rate Random Glucose 142 MG/DL Calcium Level 8.6 MG/DL Physical Exam General General Appearance: Well Developed, No Acute Distress, Obese Eyes Eye Exam: Pupils Equal, Pupils Reactive Ears & Nose Ears & Nose Exam: Nasal Mucosa Asher Throat Throat Exam: Oral Mucosa Asher & Moist Neck Neck Exam: Neck Supple, Trachea Midline Pulmonary Resp Exam: Breath Sounds Equal, Decreased Bases, Poor Inspiratory Effort Cardiology CV Exam: Regular, Normal Sinus Rhythm, Good Perfusion Gastrointestinal/Abdomen GI Exam: Soft, Non-Tender, Bowel Sounds Present, Non-Distended Genitourinary Exam: Clear Urine Musculoskeletal MS Exam: Joints Intact, Unable to Ambulate Integumentary Skin Exam: Warm, Dry Extremeties Extremities Exam: Pedal Pulses Palpable, Trace Edema Neurologic Neuro Exam: Alert, Awake, Speech Clear, Moving All Extremities, Bobbin Stripper Equal, No Focal Deficits Psychiatric Psych Exam: Appropriate Responses VTE Prophylaxis VTE Prophylaxis Device: SCDs Assessment/Plan Problem List: (1) KAREN (acute kidney injury) (2) UTI (urinary tract infection) (3) Depression (4) Sleep apnea (5) Obesities, morbid (6) Hyperlipidemia (7) Hypertension, benign (8) Sepsis (9) H/O CHF (10) Type 2 diabetes mellitus Assessment/Plan sepsis with UTI UC + GNR, sens pending continue abx Lactic acid back to normal cautious hydration, hx CHF Renal function improved monitor BMP accuchecks AC/HS with ISS Continue home meds Pepcid for peptic ulcer disease prophylaxis. SCDs/Heparin for deep venous thrombosis prophylaxis. PT for eval and tx OOB with assist Imaging studies reviewed, no fractures Labs reviewed, improved Poss dc tomorrow if he remains stable D/W RN D/W Dr. Bill D/W Pt this patient was seen by myself and Dr Bill, this note is written on her behalf. Problem Qualifiers (1) UTI (urinary tract infection): Qualified Code: N30.00 - Acute cystitis without hematuria (2) Depression: Qualified Code: F32.9 - Depression, unspecified depression type (3) Sleep apnea: Qualified Code: G47.30 - Sleep apnea, unspecified type (4) Obesities, morbid: Qualified Code: E66.01 - Morbid obesity, unspecified obesity type (5) Hyperlipidemia: Qualified Code: E78.5 - Hyperlipidemia, unspecified hyperlipidemia type (6) Sepsis: Qualified Code: A41.9 - Sepsis, due to unspecified organism (7) Type 2 diabetes mellitus: Qualified Code: E11.8 - Type 2 diabetes mellitus with complication, unspecified half-way insulin use status Madeline Love May 19, 2016 10:48
[2016-05-19] MEDS: HEPARIN SODIUM - SQ 10,000 UNITS/ML VIAL SQ SCH ×2 (12:20→21:24)
[2016-05-19] MEDS: PIPERACIL-TAZO 3.375 GM PREMIX 50 ML IV SCH ×2 (13:47→21:23)
[2016-05-19] MEDS: metFORMIN HCL 500 MG TAB PO SCH (17:29)
[2016-05-19] MEDS: ATORVASTATIN 10 MG TAB PO SCH (21:24)
[2016-05-20] VITALS: BP 136/60; PULSE 73; RESP 16; TEMP 98; O2SAT 95
[2016-05-20] MEDS: PIPERACIL-TAZO 3.375 GM PREMIX 50 ML IV SCH ×3 (01:17→14:18)
[2016-05-20 06:06] VITALS: BP 147/65; PULSE 73; RESP 14; TEMP 97.8; O2SAT 97
[2016-05-20] MEDS: INSULIN ASPART SUPPLEMENTAL SCALE SQ SCH ×2 (06:17→12:34)
[2016-05-20 07:45] LABS: AUTOMATED NEUTROPHIL # 3.8 TH/MM3 (1.8-7.7); BASOPHIL % 0.5 % (0.0-2.0); EOSINOPHIL # 0.3 TH/MM3 (0-0.4); EOSINOPHIL % 3.9 % (0.0-4.0); HEMATOCRIT 36.6 % (39.0-51.0); HEMO FLAGS DIFF FINAL; LYMPH % 33.4 % (9.0-44.0); LYMPHOCYTE # 2.3 TH/MM3 (1.0-4.8); MEAN CELL VOLUME 87.4 FL (80.0-100.0); MEAN CORPUSCULAR HEMOGLOBIN 27.8 PG (27.0-34.0); MEAN CORPUSCULAR HGB CONC 31.8 % (32.0-36.0); MONO % 7.9 % (0.0-8.0); NEUT % 54.3 % (16.0-70.0); PLATELET COUNT 206 TH/MM3 (150-450); RED BLOOD COUNT 4.18 MIL/MM3 (4.50-5.90); RED CELL DISTRIBUTION WIDTH 16.5 % (11.6-17.2)
[2016-05-20 08:00] VITALS: BP 168/75; PULSE 73; RESP 20; TEMP 96; O2SAT 97
[2016-05-20 08:10] LABS: BICARBONATE 33.3 MEQ/L (21.0-32.0); POTASSIUM 4.5 MEQ/L (3.5-5.1)
[2016-05-20] MEDS: metFORMIN HCL 500 MG TAB PO SCH (08:37)
[2016-05-20] MEDS: FAMOTIDINE 20 MG TAB PO SCH (08:37)
[2016-05-20] MEDS: SENNOSIDES 8.6 MG TAB PO SCH (08:37)
[2016-05-20] MEDS: VENLAFAXINE HCL XR 75 MG CAP PO SCH (08:37)
[2016-05-20] MEDS: PROPRANOLOL HCL 10 MG TAB PO SCH (08:38)
[2016-05-20] MEDS: GABAPENTIN 300 MG CAP PO SCH ×2 (08:38→12:33)
[2016-05-20] MEDS: LOSARTAN 50 MG TAB PO SCH (08:38)
[2016-05-20] MEDS: HEPARIN SODIUM - SQ 10,000 UNITS/ML VIAL SQ SCH (08:40)
[2016-05-20] MEDS: SODIUM CHLORIDE 0.9% FLUSH 5 ML FLUSH FLUSH SCH (08:43)
[2016-05-20] MEDS: BUDESONIDE-FORMOTEROL 160/4.5 MCG INHALER INH SCH (08:43)
[2016-05-20] MEDS: TIOTROPIUM BROMIDE 18 MCG INH INH SCH (08:43)
[2016-05-20] MEDS ORDERED: CIPR-9 PO (10:46)
--- NOTE | 2016-05-20 10:47 | HHI.DCPOC ---
Discharge Care Plan Diagnosis: (1) UTI (urinary tract infection) (2) Weakness Your Health Problems Are: Anxiety Difficulty with ADL Goals to Promote Your Health * To prevent worsening of your condition and complications * To maintain your health at the optimal level Directions to Meet Your Goals Take your medications as prescribed Follow your dietary instruction Follow activity as directed Keep your appointments as scheduled Take your immunizations and boosters as scheduled If your symptoms worsen call your PCP, if no PCP go to Urgent Care Center or Emergency Room Smoking is Dangerous to Your Health. Avoid second hand smoke Call the 24-hour hour crisis hotline for domestic abuse at Madeline Love May 20, 2016 10:47
[2016-05-20 12:00] VITALS: BP 126/61; PULSE 82; RESP 24; TEMP 96.4; O2SAT 96
--- NOTE | 2016-05-20 12:09 | HHI.PR ---
Subjective Subjective Remarks stood up with PT, 2 assist took a few steps to chair he had not been able to do that awake, oriented x 3 no fever no cp no sob diarrhea feels better Review of Systems Constitutional Constitutional Remarks 12 point ROS completed, negative except as noted above Vitals/Results Intake & Output 05/19/16 05/19/16 05/20/16 15:00 23:00 07:00 Intake Total 530 ml 480 ml 105 ml Balance 530 ml 480 ml 105 ml Intake Oral 480 ml 480 ml IV Total 50 ml 105 ml # Voids 2 1 0 # Bowel Movements 1 1 0 Vital Signs Vital Signs Date Time Temp Pulse Resp B/P Pulse Ox O2 Delivery O2 Flow Rate FiO2 05/20/16 08:00 96.0 73 20 168/75 97 05/20/16 06:06 97.8 73 14 147/65 97 05/20/16 00:00 98.0 73 16 136/60 95 05/19/16 22:11 66 05/19/16 20:00 97.8 68 16 133/87 96 05/19/16 17:00 70 05/19/16 16:00 96.6 71 20 125/65 94 05/19/16 12:17 96.1 83 20 133/66 94 CBC/BMP: 05/20/16 0655 05/20/16 0655 Lab Results Laboratory Tests Test 05/20/16 06:55 White Blood Count 7.0 TH/MM3 Red Blood Count 4.18 MIL/MM3 Hemoglobin 11.6 GM/DL Hematocrit 36.6 % Mean Corpuscular Volume 87.4 FL Mean Corpuscular Hemoglobin 27.8 PG Mean Corpuscular Hemoglobin 31.8 % Concent Red Cell Distribution Width 16.5 % Platelet Count 206 TH/MM3 Mean Platelet Volume 8.3 FL Neutrophils (%) (Auto) 54.3 % Lymphocytes (%) (Auto) 33.4 % Monocytes (%) (Auto) 7.9 % Eosinophils (%) (Auto) 3.9 % Basophils (%) (Auto) 0.5 % Neutrophils # (Auto) 3.8 TH/MM3 Lymphocytes # (Auto) 2.3 TH/MM3 Monocytes # (Auto) 0.6 TH/MM3 Eosinophils # (Auto) 0.3 TH/MM3 Basophils # (Auto) 0.0 TH/MM3 CBC Comment DIFF FINAL Differential Comment Sodium Level 140 MEQ/L Potassium Level 4.5 MEQ/L Chloride Level 102 MEQ/L Carbon Dioxide Level 33.3 MEQ/L Anion Gap 5 MEQ/L Blood Urea Nitrogen 17 MG/DL Creatinine 1.29 MG/DL Estimat Glomerular Filtration 55 ML/MIN Rate Random Glucose 135 MG/DL Calcium Level 8.8 MG/DL Physical Exam General General Appearance: Well Developed, No Acute Distress, Obese Eyes Eye Exam: Pupils Equal, Pupils Reactive Ears & Nose Ears & Nose Exam: Nasal Mucosa [place] Throat Throat Exam: Oral Mucosa [place] & Moist Neck Neck Exam: Neck Supple, Trachea Midline Pulmonary Resp Exam: Breath Sounds Equal, Decreased Bases, Poor Inspiratory Effort Cardiology CV Exam: Regular, Normal Sinus Rhythm, Good Perfusion Gastrointestinal/Abdomen GI Exam: Soft, Non-Tender, Bowel Sounds Present, Non-Distended Musculoskeletal MS Exam: Joints Intact, Unable to Ambulate Integumentary Skin Exam: Warm, Dry Extremeties Extremities Exam: Pedal Pulses Palpable, Trace Edema Neurologic Neuro Exam: Alert, Awake, Oriented, Speech Clear, Moving All Extremities, Senior It Project Manager Equal, No Focal Deficits Psychiatric Psych Exam: Appropriate Responses VTE Prophylaxis VTE Prophylaxis Device: SCDs VTE Prophylaxis Meds: Heparin PUD Prophylasis PUD Remarks Pepcid Assessment/Plan Problem List: (1) KAREN (acute kidney injury) (2) UTI (urinary tract infection) (3) Depression (4) Sleep apnea (5) Obesities, morbid (6) Hyperlipidemia (7) Hypertension, benign (8) Sepsis (9) H/O CHF (10) Type 2 diabetes mellitus Assessment/Plan sepsis with UTI UC + GNR, proteus mirabilis continue abx Lactic acid back to normal DC IVF Renal function improved monitor BMP accuchecks AC/HS with ISS Continue home meds Pepcid for peptic ulcer disease prophylaxis. SCDs/Heparin for deep venous thrombosis prophylaxis. PT for eval and tx OOB with assist Imaging studies reviewed, no fractures CM for dc planning Discharge to SNF today F/U ortho F/U PCP Activity-as tolerated Diet-heart healthy D/W RN D/W Dr. Bill D/W Pt D/W CM this patient was seen by myself and Dr Bill, this note is written on her behalf. Problem Qualifiers (1) UTI (urinary tract infection): Qualified Code: N30.00 - Acute cystitis without hematuria (2) Depression: Qualified Code: F32.9 - Depression, unspecified depression type (3) Sleep apnea: Qualified Code: G47.30 - Sleep apnea, unspecified type (4) Obesities, morbid: Qualified Code: E66.01 - Morbid obesity, unspecified obesity type (5) Hyperlipidemia: Qualified Code: E78.5 - Hyperlipidemia, unspecified hyperlipidemia type (6) Sepsis: Qualified Code: A41.9 - Sepsis, due to unspecified organism (7) Type 2 diabetes mellitus: Qualified Code: E11.8 - Type 2 diabetes mellitus with complication, unspecified termite renewal inspector insulin use status Madeline Love May 20, 2016 12:09
--- NOTE | 2016-05-20 12:11 | HHI.DS ---
Discharge Summary Admission Date May 17, 2016 at 19:28 Discharge Date: May 20, 2016 Admitting Diagnosis fall/sepsis/UTI (1) KAREN (acute kidney injury) (2) Sepsis (3) UTI (urinary tract infection) (4) Hypertension (5) COPD (chronic obstructive pulmonary disease) (6) History of COPD (7) Obesity (8) Hypertension, benign (9) Hyperlipidemia (10) Depression (11) Sleep apnea CBC/BMP: 05/20/16 0655 05/20/16 0655 Significant Findings Laboratory Tests Test 05/17/16 05/17/16 05/17/16 05/19/16 17:42 18:35 18:45 07:39 Prothrombin Time 13.9 SEC (9.8-11.6) Blood Urea Nitrogen 28 MG/DL (7-18) Creatinine 2.03 MG/DL (0.60-1.30) Estimat Glomerular Filtration 33 ML/MIN (>89) 64 ML/MIN (>89) Rate Random Glucose 173 MG/DL 142 MG/DL (74-106) (74-106) Troponin I LESS THAN 0.02 NG/ML (0.02-0.05) Albumin 3.2 GM/DL (3.4-5.0) White Blood Count 15.2 TH/MM3 (4.0-11.0) Red Blood Count 4.44 MIL/MM3 4.03 MIL/MM3 (4.50-5.90) (4.50-5.90) Hemoglobin 12.3 GM/DL 11.5 GM/DL (13.0-17.0) (13.0-17.0) Mean Corpuscular Hemoglobin 31.5 % Concent (32.0-36.0) Neutrophils (%) (Auto) 76.5 % (16.0-70.0) Neutrophils # (Auto) 11.6 TH/MM3 (1.8-7.7) Monocytes # (Auto) 1.1 TH/MM3 (0-0.9) Lactic Acid Level 2.4 mmol/L (0.4-2.0) Urine Turbidity CLOUDY (CLEAR) Urine Protein 100 mg/dL (NEG-TRACE) Urine Occult Blood MOD (NEG) Urine Leukocyte Esterase LARGE (NEG) Urine RBC 96 /hpf (0-3) Urine WBC Clumps MANY (NONE) Urine Bacteria MOD /hpf (NONE) Hematocrit 35.2 % (39.0-51.0) Eosinophils (%) (Auto) 4.8 % (0.0-4.0) Carbon Dioxide Level 32.8 MEQ/L (21.0-32.0) Test 05/20/16 06:55 Red Blood Count 4.18 MIL/MM3 (4.50-5.90) Hemoglobin 11.6 GM/DL (13.0-17.0) Hematocrit 36.6 % (39.0-51.0) Mean Corpuscular Hemoglobin 31.8 % Concent (32.0-36.0) Carbon Dioxide Level 33.3 MEQ/L (21.0-32.0) Estimat Glomerular Filtration 55 ML/MIN (>89) Rate Random Glucose 135 MG/DL (74-106) Imaging Last Impressions Pelvis X-Ray 05/18/16 0000 Signed Impressions: Service Date/Time: Wednesday, May 18, 2016 20:13 - CONCLUSION: 1. No acute fracture. 2. Degenerative changes of both hips. Raffi Lebron MD Foot X-Ray 05/18/16 0000 Signed Impressions: Service Date/Time: Wednesday, May 18, 2016 20:17 - CONCLUSION: 1. No acute fracture. 2. Calcaneal spur. Raffi Lebron MD Chest X-Ray 05/17/161710 Signed Impressions: Service Date/Time: Tuesday, May 17, 2016 17:28 - CONCLUSION: No acute disease. No significant change has occurred. Rosendo Beckett MD Abdomen/Pelvis CT 05/17/161710 Signed Impressions: Service Date/Time: Tuesday, May 17, 2016 19:08 - CONCLUSION: 1. Nonobstructing stones of the right kidney. No evidence of obstructive uropathy or other acute abnormality on either side. 2. Stable bilateral renal cysts. 3. Trace bibasilar atelectasis. Maxx Swain MD Hospital Course This is a 70 year old white male who has multiple comorbidities and currently is in a intermediate setting according after admission for syncope. Apparently the patient attempted to rule out a wheelchair on his own and slid between the chair and bed. He complained of back pain and abdominal pain. He was brought in for evaluation. He was noted mildly agitated and confused. Pt. was evaluated in the ED, lab work up was done: White blood cell count 15.2, Red blood cell 4.44, hemoglobin 12.3, hematocrit 39.1. Platelet count 247, neutrophil percentage 76.5. Coag; PT/INR 1.2. Chemistries; sodium 139, potassium 4.9, chloride 101, carbon dioxide 26.8, blood urea nitrogen 28, creatinine 2.03. Glomerular filtration rate 33, random glucose 173, lactic acid 2.4 initially in the emergency room and now 1.3 at 05/18/2016 at 12:30. Calcium 8.8. Magnesium 2.1, total bilirubin 0.7, Aspartate aminotransferase 25, alt 35, alkaline phosphatase 102. Troponins less than 0.02. Total protein 6.8, albumin 3.2. Urine is yellow, cloudy, pH 7.5, specific gravity 1.021, positive for protein, negative for glucose and ketones. Moderate amount of acute blood. Nitrates negative, bilirubin negative. Urine esterase large amount, red blood cells counts 96, many white blood count, moderate amount of bacteria. Culture is pending. Patient was admitted with: (1) KAREN (acute kidney injury) (2) UTI (urinary tract infection) (3) Depression (4) Sleep apnea (5) Obesities, morbid (6) Hyperlipidemia (7) Hypertension, benign (8) Sepsis (9) H/O CHF (10) Type 2 diabetes mellitus During course of evaluation, the following took place: Patient was admitted, put on IV fluids and empiric antibiotics. Lactic acid was followed Patient was hemodynamically stable Urine culture was positive for GNR, found with Proteus mirabilis IV fluids were DC'd He had imaging studies, no fractures were noted. Patient remained debilitated, physical therapy was ordered He complained of left knee pain, indicated he had severe osteoarthritis and needed a knee replacement at some point Physical therapy was able to work with patient and get him out of bed to a chair. He was noted in acute renal injury, was given IV fluids BMP was monitor Renal function improved He was put on Accu-Cheks with low-dose insulin therapy Continued on home meds Pepcid for peptic ulcer disease prophylaxis. SCDs/Heparin for deep venous thrombosis prophylaxis. Case management was consulted for discharge planning Patient stabilized, no fever Was able to tolerate diet well Pt was discharged back to SNF in stable condition Pt Condition on Discharge: Stable Discharge Disposition: Discharge to SNF Discharge Instructions DIET: Follow Instructions for: Heart Healthy Diet Activities you can perform: Weight Bearing as Josiane Follow up Referrals: Orthopedics PCP Follow-up New Medications: Ciprofloxacin (Cipro) 500 Mg Tab 500 MG PO BID Infection #14 Ref 0 TAB Continued Medications: Aspirin (Aspirin) 81 Mg Tabdr 81 MG PO DAILY TAB Atorvastatin (Atorvastatin) 10 Mg Tab 10 MG PO HS Cholesterol Management #30 Ref 0 TAB Budesonide-Formoterol Inh (Symbicort Inh) 160-4.5 Mcg/Act Aero 2 PUFF INH Q12HR #1 Ref 0 INHALER Donepezil (Aricept) 10 Mg Tab 10 MG PO HS Dementia #30 Ref 0 TAB Furosemide (Lasix) 20 Mg Tab 20 MG PO DAILY #30 Ref 0 TAB Gabapentin (Gabapentin) 600 Mg Tab 600 MG PO TID #90 Ref 0 TAB Insulin Aspart Inj (Novolog Inj) 100 Unit/Ml Inj 5 SQ DAILY Insulin Aspart Inj (Novolog Inj) 1,000 Unit/10 Ml Vial 0 SQ DIRECTED Sliding Scale as directed. Blood Sugar Management #10 Ref 0 ML Insulin Glargine Inj (Lantus Inj) 100 Unit/Ml Inj 45 SQ BID Losartan (Losartan) 100 Mg Tab 100 MG PO DAILY Blood Pressure Management #30 Ref 0 TAB Melatonin (Bulk) (Melatonin) 1 Pow Pow 3 MG PO HS Metformin (Metformin) 500 Mg Tab 500 MG PO BIDPC With meals Blood Sugar Management #60 Ref 0 TAB Multiple Vitamins W/ Minerals (Multivitamin Adults) 1 Tab 1 TAB PO DAILY Nutritional Supplement Ref 0 TAB Potassium Chloride ER (Potassium Chloride ER) 10 Meq Tab 10 MEQ PO qod Electrolyte Replacement #30 Ref 0 TAB Propranolol (Propranolol) 10 Mg Tab 10 MG PO DAILY #60 Ref 0 TAB Ranitidine (Ranitidine) 150 Mg Tab 150 MG PO DAILY Heartburn Management #30 Ref 0 TAB Sennosides ([place]) 8.6 Mg Tab 17 MG PO BID Tiotropium Inh (Spiriva Handihaler) 18 Mcg Cap 18 MCG INH DAILY 1 capsule = 18 mcg COPD #30 Ref 0 CAP Venlafaxine (Effexor) 75 Mg Tab 225 MG PO DAILY #30 Ref 0 TAB Discontinued Medications: Clonazepam (Klonopin) 1 Mg Tab 1 MG PO BID #60 Ref 0 TAB Naproxen (Naprosyn) 250 Mg Tab 250 MG PO TID #60 Ref 0 TAB Oxycodone-Acetaminophen (Percocet) 5-325 mg Tab 1 TAB PO Q4H PRN PAIN Ref 0 TAB Madeline Love May 20, 2016 12:11
[2016-05-20] MEDS ORDERED: CLON1TAB PO (14:30)
[2016-05-20] MEDS ORDERED: PERC5TAB12 PO (14:31)
[2016-05-20 16:00] VITALS: BP 137/66; PULSE 66; RESP 20; TEMP 96.7; O2SAT 95
== END 2016-05-20 16:54 ==
LOC: NEPC 16:58 → INTOOBSV 19:28 → NEDA 19:28 → N05B 05-18 01:36 → UNDODISIN 05-20 16:54
PROVIDERS: ADMIT Internal Medicine; ATTEND Internal Medicine
DX: N17.9 Acute kidney failure, unspecified (principal); A41.9 Sepsis, unspecified organism; N30.00 Acute cystitis without hematuria; I10 Essential (primary) hypertension; J44.9 Chronic obstructive pulmonary disease, unspecified; I25.10 Atherosclerotic heart disease of native coronary artery without angina pectoris; F31.9 Bipolar disorder, unspecified; F03.90 Unspecified dementia, unspecified severity, without behavioral disturbance, psychotic disturbance, mood disturbance, and anxiety; E11.8 Type 2 diabetes mellitus with unspecified complications; E66.01 Morbid (severe) obesity due to excess calories; G47.33 Obstructive sleep apnea (adult) (pediatric); N28.1 Cyst of kidney, acquired; E78.00 Pure hypercholesterolemia, unspecified; E78.5 Hyperlipidemia, unspecified; K21.9 Gastro-esophageal reflux disease without esophagitis; M19.90 Unspecified osteoarthritis, unspecified site; N20.0 Calculus of kidney; Z79.4 Long term (current) use of insulin; Z86.73 Personal history of transient ischemic attack (TIA), and cerebral infarction without residual deficits; Z96.659 Presence of unspecified artificial knee joint; M25.562 Pain in left knee
CPT/HCPCS: 71010; 72170; 73620; 74176; 80048; 80053; 81001; 82550; 82948; 83605; 83735; 84484; 85025; 85610; 85730; 87040; 87077; 87086; 87186; 93005; 96361; 96365; 97110; 97162; 97530; 99285; G0378; J1644; J1815; J2543; J7030

== ENCOUNTER 2016-07-16 16:08 | Emergency (ER) | payer MEDICARE, OTHER ==
[~2016-07-16] VITALS: Ht 185.4 cm; Wt 135.0 kg
[~2016-07-16 16:08] MED LIST changes: +ARIC10TA PO; -ARIC5TAB PO; +ASPI1TAB69 PO; -ASPI81 PO; -ATOR10 PO; +ATOR10TA15 PO; +CIPR-9 PO; -CLON.5 PO; +CLON1TAB PO; -COMMODE 3:1; -COZA100T PO; -DULO60 PO; +FURO1TAB62 PO; -GABA300 PO; +GABA600T PO; -IPRA0.02 NEB; -LAMI25TA3 PO; -LANTUS2P SC; +LANTUS2P SQ; +LOSA100T PO; +MELAPOW2 PO; +METF500T PO; +MULT1TAB84 PO; +NOVOLOGSS SQ; -OXYC1SOL5 PO; +PERC5TAB12 PO; -PERI8.6T PO; +POTA10TA2 PO; +PROP10TA6 PO; +SENE8.6T3 PO; +SYMB160A INH; -TAB-TAB PO; -TUB TRANSFER BENCH; +VENL75TA PO; -Z.0.OXYGEN INH; -Z.0.WALKERBAR; -Z.0.WHEELBAR
[2016-07-16 16:19] VITALS: BP 113/59; PULSE 78; RESP 20; TEMP 98.1; O2SAT 97
--- NOTE | 2016-07-16 16:54 | PD ---
HPI Chief Complaint: Fall Time Seen by Provider: 16:54 Travel History International Travel<30 days: No Contact w/Intl Traveler<30days: No Traveled to known affect area: No History of Present Illness HPI 70-year-old male with a history of COPD on chronic oxygen, CHF, CAD, hyperlipidemia, CVA, diabetes, dementia, neuropathy is [facility] department [facility] for [facility] of fall. The patient states that he was sitting on his bed and reached for his headphones and accidentally knocked him off the table. States that when he bent over to grab the headphones he lost his balance and fell down injuring his head, back and right leg. The patient states that he has a history of recurrent falls and has weakness of his bilateral lower extremities and has been ongoing for several years. He is complaining of pain in his mid and lower back and his right leg. Denies any numbness or tingling, fever, chills, nausea, vomiting, chest pain, shortness breath, abdominal pain. No other complaints. PFSH Past Medical History Arthritis: Yes (severe arthritis) Asthma: No Autoimmune Disease: No Blood Disorders: No Bipolar Disorder: Yes Anxiety: Yes Depression: Yes Heart Rhythm Problems: No Cancer: No Cardiovascular Problems: Yes High Cholesterol: Yes Chemotherapy: No Chest Pain: No Congestive Heart Failure: Yes COPD: Yes Cerebrovascular Accident: Yes Dementia: Yes Diabetes: Yes Diminished Hearing: No Endocrine: Yes Gastrointestinal Disorders: Yes (GERD) GERD: Yes Glaucoma: No Genitourinary: Yes Headaches: No Hiatal Hernia: No Heparin Induced Thrombocytopen: No Herniated Disk: Yes (SURGICAL REPAIR) Hypertension: Yes Immune Disorder: No Implanted Vascular Access Dvce: Yes Kidney Stones: Yes Musculoskeletal: Yes Neurologic: Yes (SPINAL CORD COMPRESSIONS, CARPAL TUNNEL SYNDROME; NEUROPATHY BLE & UE) Psychiatric: Yes Reproductive: No Respiratory: Yes Immunizations Current: Yes Migraines: No Myocardial Infarction: No Radiation Therapy: No Renal Failure: No Seizures: No Sickle Cell Disease: No Sleep Apnea: Yes (CPAP) Thyroid Disease: No Ulcer: No Past Surgical History Abdominal Surgery: No AICD: No Arteriovenous Shunt: No Body Medical Devices: METAL PLATE C4, TONY KNEE Cardiac Surgery: No Ear Surgery: No Endocrine Surgery: No Eye Surgery: Yes (BILATERAL CATARACT) Genitourinary Surgery: Yes (PROSTATE/TURP X2) Gynecologic Surgery: No Insulin Pump: No Joint Replacement: Yes (TONY KNEE) Neurologic Surgery: Yes (DISC, has a plate in his neck; Bilateral carpal tunnel release) Oral Surgery: Yes ( top teeth removed) Pacemaker: No Thoracic Surgery: No Tonsillectomy: Yes Other Surgery: Yes Social History Alcohol Use: No Tobacco Use: No Substance Use: No Allergies-Medications (Allergen,Severity, Reaction): Coded Allergies: Morphine (Verified Allergy, Severe, 05/17/16) Reported Meds & Prescriptions Reported Meds & Active Scripts Active Percocet (Oxycodone-Acetaminophen) 5-325 mg Tab 1 Tab PO Q4H PRN 14 Days Clonazepam 1 Mg Tab 1 Mg PO BID Cipro (Ciprofloxacin HCl) 500 Mg Tab 500 Mg PO BID Reported Melatonin (Melatonin (Bulk)) 1 Pow Pow 3 Mg PO HS Novolog Inj (Insulin Aspart) 1,000 Unit/10 Ml Vial 0 SQ DIRECTED Sliding Scale as directed. Novolog Inj (Insulin Aspart) 100 Unit/Ml Inj 5 SQ DAILY Lantus Inj (Insulin Glargine) 100 Unit/Ml Inj 45 SQ BID Aricept (Donepezil) 10 Mg Tab 10 Mg PO HS Atorvastatin (Atorvastatin Calcium) 10 Mg Tab 10 Mg PO HS Gabapentin 600 Mg Tab 600 Mg PO TID Symbicort Inh (Budesonide/Formoterol Fumarate) 160-4.5 Mcg/Act Aero 2 Puff INH Q12HR [place] (Sennosides) 8.6 Mg Tab 17 Mg PO BID Metformin (Metformin HCl) 500 Mg Tab 500 Mg PO BIDPC With meals Effexor (Venlafaxine HCl) 75 Mg Tab 225 Mg PO DAILY Spiriva Handihaler (Tiotropium Inh) 18 Mcg Cap 18 Mcg INH DAILY 1 capsule = 18 mcg Ranitidine (Ranitidine HCl) 150 Mg Tab 150 Mg PO DAILY Propranolol (Propranolol HCl) 10 Mg Tab 10 Mg PO DAILY Potassium Chloride ER (Potassium Chloride) 10 Meq Tab 10 Meq PO QOD Multivitamin Adults (Multiple Vitamins W/ Minerals) 1 Tab 1 Tab PO DAILY Losartan (Losartan Potassium) 100 Mg Tab 100 Mg PO DAILY Lasix (Furosemide) 20 Mg Tab 20 Mg PO DAILY Aspirin 81 Mg Tabdr 81 Mg PO DAILY Review of Systems Except as stated in HPI: all other systems reviewed are Neg Physical Exam Narrative GENERAL: Well-nourished and well-developed pleasant male patient in no acute distress who is nontoxic appearing. SKIN: Warm and dry. HEAD: Normocephalic and atraumatic. EYES: No injection, drainage, or hyphema noted. PERRLA. EOMI. ENT: No nasal drainage noted. Oropharynx is clear. NECK: Supple and the trachea is midline. CARDIOVASCULAR: Regular rate and rhythm. RESPIRATORY: Breath sounds are equal bilaterally with no accessory muscle use, wheezing, rhonchi, or crackles. GASTROINTESTINAL: Abdomen is soft, non-tender, and nondistended. MUSCULOSKELETAL: Tenderness of right thigh. No obvious deformities, swelling, cyanosis, or ecchymosis is present throughout the upper and lower extremities. Patient has full range of motion without any signs of neurovascular compromise. Strength 5/5 upper and lower extremities equal bilaterally. BACK: Tenderness to palpation of thoracic and lumbar regions. No obvious deformities, bony point tenderness, or crepitus noted throughout the thoracic and lumbar vertebrae. NEUROLOGICAL: Awake, alert, and oriented. Normal speech and gait. Cranial nerves are grossly intact. Data Data Last Documented VS Vital Signs Date Time Temp Pulse Resp B/P Pulse Ox O2 Delivery O2 Flow Rate FiO2 07/16/16 18:11 97 Nasal Cannula 2 07/16/16 16:19 98.1 78 20 113/59 Orders Femur (Ap & Lat/2vws) (07/16/16 16:51) Spine, Thoracic-Ap/Lat/Sw(3vw) (07/16/16 16:51) Spine, Lumbar - Ltd (Ap & Lat) (07/16/16 16:51) Pelvis, Ap Only (Routine) (07/16/16 16:51) Ct Brain W/O Iv Contrast(Rout) (07/16/16 16:51) Complete Blood Count With Diff (07/16/16 16:53) Comprehensive Metabolic Panel (07/16/16 16:53) Urinalysis - C+S If Indicated (07/16/16 16:53) Iv Access Insert/Monitor (07/16/16 16:53) Ecg Monitoring (07/16/16 16:53) Oximetry (07/16/16 16:53) Labs Laboratory Tests Test 07/16/16 07/16/16 18:25 19:35 White Blood Count 12.5 TH/MM3 Red Blood Count 4.66 MIL/MM3 Hemoglobin 13.3 GM/DL Hematocrit 42.1 % Mean Corpuscular Volume 90.4 FL Mean Corpuscular Hemoglobin 28.5 PG Mean Corpuscular Hemoglobin 31.5 % Concent Red Cell Distribution Width 16.0 % Platelet Count 249 TH/MM3 Mean Platelet Volume 8.5 FL Neutrophils (%) (Auto) 63.6 % Lymphocytes (%) (Auto) 26.0 % Monocytes (%) (Auto) 6.7 % Eosinophils (%) (Auto) 3.1 % Basophils (%) (Auto) 0.6 % Neutrophils # (Auto) 8.0 TH/MM3 Lymphocytes # (Auto) 3.3 TH/MM3 Monocytes # (Auto) 0.8 TH/MM3 Eosinophils # (Auto) 0.4 TH/MM3 Basophils # (Auto) 0.1 TH/MM3 CBC Comment DIFF FINAL Differential Comment Sodium Level 139 MEQ/L Potassium Level 4.5 MEQ/L Chloride Level 100 MEQ/L Carbon Dioxide Level 32.1 MEQ/L Anion Gap 7 MEQ/L Blood Urea Nitrogen 24 MG/DL Creatinine 1.38 MG/DL Estimat Glomerular Filtration 51 ML/MIN Rate Random Glucose 85 MG/DL Calcium Level 9.4 MG/DL Total Bilirubin 0.6 MG/DL Aspartate Amino Transf 24 U/L (AST/SGOT) Alanine Aminotransferase 26 U/L (ALT/SGPT) Alkaline Phosphatase 111 U/L Total Protein 7.3 GM/DL Albumin 3.6 GM/DL Urine Color YELLOW Urine Turbidity CLEAR Urine pH 5.5 Urine Specific [place] 1.012 Urine Protein NEG mg/dL Urine Glucose (UA) NEG mg/dL Urine Ketones NEG mg/dL Urine Occult Blood NEG Urine Nitrite NEG Urine Bilirubin NEG Urine Urobilinogen LESS THAN 2.0 MG/DL Urine Leukocyte Esterase SMALL Urine WBC 3 /hpf Urine Squamous Epithelial <1 /hpf Cells Urine Hyaline Casts 1 /lpf Microscopic Urinalysis Comment CULT NOT INDICATED MDM Medical Decision Making Medical Screen Exam Complete: Yes Emergency Medical Condition: Yes Differential Diagnosis Contusion versus fracture versus sprain versus electrolyte abnormality versus UTI Narrative Course 70-year-old male presents to the emergency department for evaluation of fall. Patient is afebrile, vital signs are stable. Physical examination is essentially unremarkable. He is complaining of hitting his head, back and right leg. We'll do x-rays and CT imaging to evaluate for any acute injuries. The patient's does report that last time he was falling more frequently he did have acute kidney injury and urinary tract infection. Therefore we'll do lab work and urinalysis as well. CBC shows a slightly elevated white blood cell count 12.5, otherwise unremarkable. CMP shows mild renal insufficiency with a creatinine of 1.38, BUN 24, GFR 51. This is around the patient's baseline, slightly elevated. Urinalysis is unremarkable. X-ray of the right femur is negative for any Alvarez. X-ray of the pelvis is negative for any acute abnormalities. X-ray of the thoracic spine is negative for any acute abnormalities. X-ray of the lumbar spine is negative for any acute abnormalities. Head CT is negative for any acute abnormalities. Patient has remained stable and without complaint while here in the emergency department. He is stable to be discharged back [facility]. Patient and family are agreeable with this plan. I discussed the case with my attending physician Dr. Faulkner who is aware of the patients history, physical examination findings, and treatment plan. Diagnosis Primary Impression: Leg pain, right Additional Impressions: Back pain Qualified Code: M54.9 - Bilateral back pain, unspecified back location, unspecified chronicity Fall Qualified Code: W19.XXXA - Fall, initial encounter Referrals: Primary Care Physician Patient Instructions: Back Pain (ED), General Instructions, Leg Pain (ED) Additional Instructions: Follow-up with your Primary Care Physician. Return to the ED for any acute worsening of symptoms. Med/Other Pt SpecificInfo: No Change to Meds Disposition: 03 DISCHARGE TO SNF Condition: Stable Laila Allen Jul 16, 2016 16:54
--- NOTE | 2016-07-16 17:40 | RADRPT ---
EXAM DATE/TIME: 07/16/2016 17:09 [facility] COMPARISON: PELVIS AP ONLY, May 18, 2016, 20:13. INDICATIONS : Pelvic pain after fall today. MEDICAL HISTORY : None. SURGICAL HISTORY : None. ENCOUNTER: Initial ACUITY: 1 day PAIN SCORE: 5/10 LOCATION: Pelvis. FINDINGS: A single frontal view of the pelvis demonstrates no evidence of fracture. The bony pelvic ring is in tact. Bony mineralization is normal. The soft tissues are intact. CONCLUSION: Negative trauma study. Fito Rick MD on July 16, 2016 at 17:37 Board Certified Radiologist. This report was verified electronically.
--- NOTE | 2016-07-16 17:40 | RADRPT ---
EXAM DATE/TIME: 07/16/2016 17:10 [facility] COMPARISON: No previous studies available for comparison. INDICATIONS : Right leg pain after fall today. MEDICAL HISTORY : None. SURGICAL HISTORY : Total knee. ENCOUNTER: Initial ACUITY: 1 day PAIN SCORE: 10/10 LOCATION: Right leg. FINDINGS: Two view examination of the right femur demonstrates no evidence of fracture or dislocation. Bony mi neralization is normal. The soft tissue structures are intact. The patient is status post right knee arthroplasty. CONCLUSION: Negative trauma study. Fito Rick MD on July 16, 2016 at 17:38 Board Certified Radiologist. This report was verified electronically.
--- NOTE | 2016-07-16 17:41 | RADRPT ---
EXAM DATE/TIME: 07/16/2016 17:12 [facility] COMPARISON: No previous studies available for comparison. INDICATIONS : Upper back pain after fall today. MEDICAL HISTORY : None. SURGICAL HISTORY : Cervical fusion. ENCOUNTER: Initial ACUITY: 1 day PAIN SCORE: 8/10 LOCATION: Upper back. FINDINGS: The vertebral bodies are normal in alignment on the lateral view. There is multilevel disc space narr owing and marginal osteophyte formation maximal at multiple levels maximal at the thoracolumbar junct ion. There is no evidence of acute fracture. Bony mineralization is normal. CONCLUSION: 1. Moderate degenerative changes as described above. There is no evidence of acute fracture. Uriel Adams MD on July 16, 2016 at 17:38 Board Certified Radiologist. This report was verified electronically.
--- NOTE | 2016-07-16 17:41 | RADRPT ---
EXAM DATE/TIME: 07/16/2016 17:14 [facility] COMPARISON: No previous studies available for comparison. INDICATIONS : Lower back pain after fall today. MEDICAL HISTORY : None. SURGICAL HISTORY : None. ENCOUNTER: Initial ACUITY: 1 day PAIN SCORE: 10/10 LOCATION: lower back. FINDINGS: The vertebral bodies are normal in alignment on the lateral view. There is multilevel disc space narr owing and marginal osteophyte formation maximal at L4-L5. There is multilevel facet arthritis maximal at L5-S1. There is no evidence of acute fracture. Bony mineralization is normal. CONCLUSION: 1. Moderate degenerative changes as described above. There is no evidence of acute fracture. Uriel Adams MD on July 16, 2016 at 17:39 Board Certified Radiologist. This report was verified electronically.
--- NOTE | 2016-07-16 17:42 | RADRPT ---
EXAM DATE/TIME: 07/16/2016 17:31 [facility] COMPARISON: CT BRAIN W/O CONTRAST, December 29, 2015, 20:07. INDICATIONS : Fall, hit head on floor today. RADIATION DOSE: 58.52 CTDIvol (mGy) MEDICAL HISTORY : Dementia. Cardiovascular disease Hypertension.Diabetes. SURGICAL HISTORY : Prostatectomy. TURP ENCOUNTER: Initial ACUITY: 1 day PAIN SCALE: Non-responsive LOCATION: Bilateral cranial TECHNIQUE: Multiple contiguous axial images were obtained of the head. Using automated exposure control and adj ustment of the mA and/or kV according to patient size, radiation dose was kept as low as reasonably a chievable to obtain optimal diagnostic quality images. FINDINGS: CEREBRUM: The ventricles are normal for age. No evidence of midline shift, mass lesion, hemorrhage or acute in farction. No extra-axial fluid collections are seen. POSTERIOR FOSSA: The cerebellum and brainstem are intact. The 4th ventricle is midline. The cerebellopontine angle i s unremarkable. EXTRACRANIAL: The visualized portion of the orbits is intact. SKULL: The calvaria is intact. No evidence of skull fracture. CONCLUSION: 1. No evidence of acute intracranial pathology. No masses are identified. Uriel Adams MD on July 16, 2016 at 17:39 Board Certified Radiologist. This report was verified electronically.
[2016-07-16 18:11] VITALS: O2SAT 97
[2016-07-16 18:44] LABS: BASOPHIL # 0.1 TH/MM3 (0-0.2); BASOPHIL % 0.6 % (0.0-2.0); EOSINOPHIL # 0.4 TH/MM3 (0-0.4); EOSINOPHIL % 3.1 % (0.0-4.0); HEMATOCRIT 42.1 % (39.0-51.0); HEMO FLAGS DIFF FINAL; LYMPHOCYTE # 3.3 TH/MM3 (1.0-4.8); MEAN CELL VOLUME 90.4 FL (80.0-100.0); MEAN CORPUSCULAR HEMOGLOBIN 28.5 PG (27.0-34.0); MEAN CORPUSCULAR HGB CONC 31.5 % (32.0-36.0); MONO % 6.7 % (0.0-8.0); NEUT % 63.6 % (16.0-70.0); PLATELET COUNT 249 TH/MM3 (150-450); RED BLOOD COUNT 4.66 MIL/MM3 (4.50-5.90); WHITE BLOOD COUNT 12.5 TH/MM3 (4.0-11.0)
[2016-07-16 19:14] LABS: ALT (GPT) 26 U/L (12-78); ANION GAP 7 MEQ/L (5-15); AST (GOT) 24 U/L (15-37); BICARBONATE 32.1 MEQ/L (21.0-32.0); BLOOD UREA NITROGEN 24 MG/DL (7-18); CHLORIDE 100 MEQ/L (98-107); GLOMERULAR FILTRATION RATE 51 ML/MIN (>89); POTASSIUM 4.5 MEQ/L (3.5-5.1); SODIUM (NA) 139 MEQ/L (136-145)
[2016-07-16 19:18] LABS: ALKALINE PHOSPHATASE 111 U/L (45-117); TOTAL BILIRUBIN ADULT 0.6 MG/DL (0.2-1.0)
[2016-07-16 20:10] LABS: BLOOD, URINE NEG (NEG); COMMENT (UR) CULT NOT INDICATED; CULTURE IF INDICATED CULT NOT INDICATED; GLUCOSE,URINE NEG (NEG); HYALINE CAST, URINE 1 /lpf (RARE); KETONE, URINE NEG (NEG); NITRITE,URINE NEG (NEG); PH, URINE 5.5 (5.0-8.5); SQUAMOUS EPITHELIAL CELL URINE <1 /hpf (0-5); URINE COLOR YELLOW (YELLW/STRAW)
== END 2016-07-16 23:09 ==
LOC: NEPC 16:08 → NEPB 23:09
DX: M79.604 Pain in right leg (principal); M54.9 Dorsalgia, unspecified; W18.39XA Other fall on same level, initial encounter
CPT/HCPCS: 70450; 72072; 72100; 72170; 73552; 80053; 81001; 85025